=== PATIENT | female | born 1935 | race Caucasian/White ===

== ENCOUNTER 2018-09-08 13:01 | Observation (INO) | END 2018-09-09 18:00 | disposition home or self-care (01) ==

== ENCOUNTER 2019-07-30 03:34 | Emergency (ER) | payer MEDICARE, OTHER ==
[~2019-07-30] VITALS: Ht 172.7 cm; Wt 85.0 kg
[~2019-07-30 03:34] MED LIST: ACET500C3 PO; APIX2.5T PO; ASPI81TA52 PO; BISA5TAB6 PO; CARV3.1260 PO; CILO50TA PO; DICL100G37 TOP; DOCU250C68 PO; DONE10TA7 PO; ERGO500013 PO; ESOM40CA51 PO; EZET10TA32 PO; FENO134C PO; FER325 PO; FURO40TA4 PO; GABA-526 PO; GABA300C16 PO; HYDR28.39 RC; ISOS60TA PO; LINA145C PO; LORA0.5T PO; LUBI24CA7 PO; NITR0.4T39 SL; OXYB15TA PO; POTA20TA15 PO; PRED5DRO20 BOTH EYES; PROP10TA6 PO; PSEU60TA21 PO; RAMI2.5C36 PO; RANO500T2 PO; ROSU40TA22 PO; ROSU40TA35 PO; SDSNEV BOTH EYES; SIME40DR PO; TRAM50TA PO; TRAM50TA2 PO; VIGA BOTH EYES
[2019-07-30] MEDS ORDERED: morphine 4 MG/ML VIAL IV STA (03:38)
[2019-07-30] MEDS ORDERED: CEFEPIME 2GM/50 ML (PMX) 50 ML IVPB STA (03:38)
[2019-07-30] MEDS ORDERED: ACETAMINOPHEN 325 MG TAB PO STA (03:38)
[2019-07-30] MEDS ORDERED: ONDANSETRON 4 MG INJ IV STA (03:38)
[2019-07-30 03:39] VITALS: Ht 172.7 cm; Wt 85.0 kg
[2019-07-30] MEDS ORDERED: VANCOMYCIN 1 GM (PMX) 250 ML IVPB ONE (04:00)
[2019-07-30 07:45] VITALS: BP 100/55; PULSE 73; RESP 18
== END 2019-07-30 09:16 | disposition short-term general hospital (02) ==
LOC: E/R 03:34
DX: S82.031A Displaced transverse fracture of right patella, initial encounter for closed fracture (principal); I10 Essential (primary) hypertension; S89.92XA Unspecified injury of left lower leg, initial encounter; X58.XXXA Exposure to other specified factors, initial encounter; Y92.009 Unspecified place in unspecified non-institutional (private) residence as the place of occurrence of the external cause; Z79.82 Long term (current) use of aspirin; Z96.653 Presence of artificial knee joint, bilateral
CPT/HCPCS: 29505; 36415; 73562; 80048; 83605; 85025; 85610; 85651; 85730; 86140; 87040; 93005; 96365; 96366; 96375; 99285; J0692; J2270; J2405; J3370